=== PATIENT | male | born 1970 ===

== ENCOUNTER 2020-02-03 00:26 | Outpatient (CLI) | payer SELFPAY ==
[2020-02-05 23:56] LABS: SARS-CoV-2 RNA Undetected (Undetected); SARS-CoV-2 Specimen Source Nasal
== END 2020-02-03 00:46 ==
PROVIDERS: Visit Provider Family Medicine
DX: Z11.59 Encounter for screening for other viral diseases (principal)
CPT/HCPCS: U0003